=== PATIENT | female | born 1970 | race Caucasian/White ===

== ENCOUNTER 2020-03-09 14:11 | Outpatient (REF) | payer BC, SELFPAY ==
[2020-03-12 17:07] LABS: HPV mRNA E6/E7 rflx Not Detected (Not Detected)
== END 2020-03-09 14:12 | disposition home or self-care (01) ==
LOC: HO.LNP 14:11
PROVIDERS: Visit Provider Internal Medicine
DX: Z12.4 Encounter for screening for malignant neoplasm of cervix (principal); F32.81 Premenstrual dysphoric disorder; E66.9 Obesity, unspecified
CPT/HCPCS: 87624; 88142

== ENCOUNTER 2020-04-23 14:17 | Outpatient (REF) | payer BC, SELFPAY ==
[2020-04-23 16:57] LABS: Alanine Aminotransferase 12 U/L (0-31); Alkaline Phosphatase 65 U/L (39-117); Anion Gap 12 (12-20); Aspartate Amino Transferase 13 U/L (5-31); Bilirubin Total 0.7 mg/dL (0.0-1.0); Blood Urea Nitrogen 13 mg/dL (9-16); Calcium 8.7 mg/dL (8.4-10.2); Carbon Dioxide 24 mmol/L (22-29); Chloride 106 mmol/L (96-108); Cholesterol 219 mg/dL; Estimated Glomerular Filt Rate > 60; Glucose Fasting 99 mg/dL (60-99); HDL Cholesterol 55 mg/dL; LDL Cholesterol Calculated 132 mg/dl; Potassium 4.8 mmol/L (3.3-5.1); Sodium 137 mmol/L (135-145); Total Protein 7.2 g/dL (6.5-8.0); Triglycerides 163 mg/dL
[2020-04-23 17:20] LABS: Vitamin D 25-OH Total 25.6 ng/mL (>30)
== END 2020-04-23 14:18 | disposition home or self-care (01) ==
LOC: HO.HMGCLDS 14:17
PROVIDERS: PCP Internal Medicine; Visit Provider Internal Medicine
DX: Z00.01 Encounter for general adult medical examination with abnormal findings (principal); E66.9 Obesity, unspecified; F32.81 Premenstrual dysphoric disorder
CPT/HCPCS: 36415; 80053; 80061; 82306

== ENCOUNTER 2020-07-23 15:42 | Outpatient (REF) | payer BC, SELFPAY ==
--- NOTE | ~2020-07-23 | MM_ITS ---
EXAMINATION: MM SCREENING DIGITAL BREAST TOMOSYNTHESIS, BILATERAL CLINICAL INFORMATION: Screening. Asymptomatic. The lifetime risk of breast cancer based on the Tyrer-Cuzick Model is 8%. COMPARISON: Mammography: 12/18/2017, 11/23/2016, 04/08/2015 TECHNIQUE: Digital breast tomosynthesis is performed in both the craniocaudal and mediolateral oblique views along with computer-aided detection (CAD). Synthesized 2D images are generated from the tomosynthesis. FINDINGS: There are scattered areas of fibroglandular density (ACR BI-RADS breast composition Category b). There are no significant masses, abnormal calcifications, or other abnormalities. Parenchymal pattern is similar to prior studies. No developing density. The axilla are similar to prior exam 2016. The skin contours are smooth. There are numerous punctate densities overlying the skin both axilla consistent with deodorant artifact. MM/MM tomosynthesis screening BI IMPRESSION: No mammographic evidence of malignancy. ASSESSMENT: BI-RADS 2: Benign RECOMMENDATION: Routine annual mammography screening. This patient's information was entered into a reminder system with a target due date for their next mammogram.
== END 2020-07-23 15:43 | disposition home or self-care (01) ==
LOC: HO.MAMMO 15:42
PROVIDERS: Visit Provider Internal Medicine
DX: Z12.31 Encounter for screening mammogram for malignant neoplasm of breast (principal)
CPT/HCPCS: 77063; 77067